=== PATIENT | male | born 1955 | race Two or more races ===

== ENCOUNTER 2021-05-11 14:13 | Inpatient (IN) | payer MEDICARE ==
[~2021-05-11] VITALS: Ht 162.6 cm; Wt 96.2 kg
--- NOTE | 2021-05-11 14:35 | NUR ---
BIBRA 100 FROM HOME C/O BILATERAL LEG PAIN 5/10 AND SWELLING X 2 MONTHS. SEEN IN OTHER HOSPITAL FOR SAME CC. THE PATIENT IS ALERT AND ORIENTED X3. RESPIRATION REGULAR AND UNLABORED. WILL CONTINUE TO MONITOR THE PATIENT.
[2021-05-11] MEDS ORDERED: PIPERACILLIN /TAZOBACTAM 3.375 G in IV D5W 50 ML IV ONE (15:00)
[2021-05-11] MEDS ORDERED: VANCOMYCIN 1 GM in IV D5W 250 ML IV ONE (15:00)
[2021-05-11] MEDS ORDERED: IV NS 0.9% 1,000 ML BAG IV ONE (15:00)
[2021-05-11 15:30] LABS: BASOPHILS # (AUTO) 0.1 K/uL (0.0-0.2); BASOPHILS % (AUTO) 0.6 % (0.0-2.0); HEMATOCRIT 48 % (39-51); LYMPHOCYTES # (AUTO) 0.4 K/uL (0.8-4.8); LYMPHOCYTES % (AUTO) 2.8 % (20.0-44.0); MEAN CORPUSCULAR HGB CONC 33 g/dl (31.0-36.0); MEAN CORPUSCULAR VOLUME 103 fL (80-96); MONOCYTES # (AUTO) 0.5 K/uL (0.1-1.30); MONOCYTES % (AUTO) 3.4 % (2.0-12.0); NEUTROPHILS # (AUTO) 12.8 K/uL (1.8-8.9); NEUTROPHILS % (AUTO) 93.2 % (43.0-81.0); PLATELET COUNT (AUTO) 153 K/uL (150-450); RED BLOOD CELL COUNT(AUTO) 4.73 MIL/uL (4.5-6.0); WHITE BLOOD COUNT (AUTO) 13.7 K/uL (4.3-11.0)
[2021-05-11 15:46] LABS: ALANINE AMINOTRANSFERASE 307 U/L (12-78); ALKALINE PHOSPHATASE 124 U/L (46-116); ASPARTATE AMINOTRANSFERASE 200 U/L (15-37); BILIRUBIN,TOTAL 2.5 mg/dL (0.2-1.0); CALCIUM, SERUM 8.8 mg/dL (8.5-10.1); CARBON DIOXIDE 23 mmol/L (21-32); CHLORIDE 87 mmol/L (98-107); CREATININE 3.4 mg/dL (0.6-1.3); GLUCOSE 137 mg/dL (74-106); POTASSIUM 4.1 mmol/L (3.5-5.1); SODIUM SERUM 126 mmol/L (136-145); TOTAL PROTEIN, SERUM 6.7 g/dL (6.4-8.2)
[2021-05-11 15:47] LABS: UREA NITROGEN, BLOOD 97 mg/dL (7-18)
[2021-05-11 15:48] LABS: ALBUMIN < 0.6 g/dL (3.4-5.0)
--- NOTE | 2021-05-11 16:06 | NUR ---
COVID ANTIGEN SWAB DONE AND SENT TO THE LAB
--- NOTE | 2021-05-11 16:20 | NUR ---
CONTACTED DR. REMY TO CALL ED
--- NOTE | 2021-05-11 17:28 | NUR ---
CALLED DR. CHUNG
--- NOTE | 2021-05-11 17:46 | NUR ---
COVID POSITIVE PER LAB
[2021-05-11] MEDS ORDERED: Z GUARD REMEDY 4 OZ OINT TP PRN (22:30)
[2021-05-11] MEDS ORDERED: ZOLPIDEM TARTRATE 5 MG TABLET PO PRN (22:30)
[2021-05-11] MEDS ORDERED: ONDANSETRON HCL/PF 4 MG/2 ML VIAL IVP PRN (22:30)
[2021-05-11] MEDS ORDERED: MAGNESIUM HYDROXIDE 30 ML UDC PO PRN (22:30)
[2021-05-12] VITALS: BP 101/54
[2021-05-12] MEDS ORDERED: PIPERACILLIN /TAZOBACTAM 2.255 G in IV D5W 50 ML IV SCH ×2
--- NOTE | 2021-05-12 00:51 | NUR ---
REPORT GIVEN TO ARABELLA COFFEY
--- NOTE | 2021-05-12 01:00 | NUR ---
PT WAS TRANSFERED TO 208 UNDER ACLS
--- NOTE | 2021-05-12 01:17 | NUR ---
Carlos johnson in [facility] - 05/12/21 at 0118 by GHADABBNEHEMIAS PT TRANSPORTED TO [facility] ON [facility] WITHOUT INCIDENT. ALL V/S STABLE AT TIME OF TRANSFER.
--- NOTE | 2021-05-12 01:30 | NUR ---
MS RN NOTES PT ARRIVED TO UNIT VIA GURNEY. PT A/OX 3 ABLE TO MAKE NEEDS KNOWN PT IN NO PAIN OR DISCOMFORT AT THIS TIME. NO SOB NOTED OR REPORTED AT THIS TIME. NOTED PT WITH IV ACCESS ON THE RAC 20G INTACT FLUSHING WELL S/L .PT SKIN WARM TO THE TOUCH NOTED WITH REDNESS ON THE BACK AND BLE EDEMA AND CELLULITIS PICTURES TAKEN PLACED IN CHART WOUND CONSULT ORDERED WOUND CLEANED WITH NS COVERED WITH ABD PAD AND KERLIX. NOTED WITH BILATERAL EYE REDNESS. NO EYE PAIN. ABD NON TENDER NON DISTENDED PT REFUSED LOWER EXTREMITY AND PERINEUM EXAMINATION X3 RISK AND BENEFITS EXPLAINED X3. PT REFUSING ANTICOAGULANT AT THIS TIME RISK AND BENEFITS EXPLAINED X3 PT ORIENTED TO ROOM A ND UNIT. CALL LIGHT WITHIN REACH. TABLE WITHIN REACH, WILL CONTINUE TO MONITOR.
[2021-05-12] MEDS ORDERED: PIPERACILLIN /TAZOBACTAM 2.25 G VIAL IV ONE ×2 (01:42→05:27)
--- NOTE | 2021-05-12 02:00 | NUR ---
RN NOTE PATIENT STATES THAT HEPARIN MAKES HIM BLEED AN ALLERGIC REACTION. DOESN'T REMEMBER WHERE THE BLEEDING WAS. EXPLAINED TO PATIENT THAT THIS CAN BE A SIDE EFFECT OF THE HEPARIN SINCE IT IS AN ANTICOAGULANT. PATIENT STATES THAT IT MAY HAVE BEEN A SIDE EFFECT INSTEAD. PATIENT VERBALIZES HE DOESNT WANT OTHER ANTICOAGULANTS EITHER. WILL ENDORSE TO MD IN AM.
[2021-05-12] MEDS: ZOSYN IVPB 2.25 G in IV D5W 50ml IV SCH ×2 (02:03→05:52)
[2021-05-12 02:13] VITALS: BP 103/64
[2021-05-12] MEDS ORDERED: IVAB5TAB PO (06:49)
[2021-05-12] MEDS ORDERED: METO2.5T7 PO (06:49)
[2021-05-12] MEDS ORDERED: BUME2TAB7 PO (06:49)
[2021-05-12] MEDS ORDERED: SACU1TAB PO (06:49)
[2021-05-12] MEDS ORDERED: LEVE500T20 PO (06:49)
[2021-05-12] MEDS ORDERED: APIX5TAB PO (06:49)
[2021-05-12] MEDS ORDERED: HYDR-4076 PO (06:49)
[2021-05-12 07:12] LABS: HEMATOCRIT 50 % (39-51); HEMOGLOBIN 16.4 g/dL (13.5-17.5); MEAN CORPUSCULAR HGB CONC 33 g/dl (31.0-36.0); MEAN CORPUSCULAR VOLUME 103 fL (80-96); PLATELET COUNT (AUTO) 120 K/uL (150-450); RED BLOOD CELL COUNT(AUTO) 4.83 MIL/uL (4.5-6.0); WHITE BLOOD COUNT (AUTO) 12.5 K/uL (4.3-11.0)
[2021-05-12] MEDS ORDERED: CARV3.122 PO (07:26)
[2021-05-12] MEDS ORDERED: ASPI-1498 PO (07:26)
--- NOTE | 2021-05-12 07:30 | NUR ---
PT RECEIVED RESTING COMFORTABLY IN BED. NO S/S OR C/O PAIN OR DISTRESS NOTED. SIDE RAILS UP X2, CALL LIGHT LEFT WITHIN REACH. WILL CONTINUE PLAN OF CARE.
--- NOTE | 2021-05-12 07:38 | NUR ---
RN CLOSING NOTE PATIENT NOT IN ANY APPARENT DISTRESS. STILL HAS PRODUCTIVE COUGH, ON RA. NO SIGNIFICANT CHANGES IN CONDITION. ENDORSED TO DAY SHIFT NURSE FOR TIFFANY.
[2021-05-12 07:56] VITALS: BP 92/63
[2021-05-12 08:00] VITALS: BP 89/64
[2021-05-12 08:05] LABS: CALCIUM, SERUM 8.6 mg/dL (8.5-10.1); CREATININE 3.3 mg/dL (0.6-1.3); MAGNESIUM 2.8 mg/dL (1.8-2.4); PHOSPHORUS 5.3 mg/dL (2.5-4.9); POTASSIUM 4.7 mmol/L (3.5-5.1)
[2021-05-12] MEDS: HEPARIN SODIUM, PORCINE 5000 UNITS/1 ML VIAL SQ SCH ×2 (09:00→21:00)
[2021-05-12 09:18] LABS: THYROID STIMULATING HORMONE 1.069 uIU/mL (0.358-3.74); URIC ACID 19.3 mg/dL (2.6-7.2)
--- NOTE | 2021-05-12 09:36 | NUR ---
WOUND CARE CONSULT: REVIEWED CHART, NURSING DOCUMENTATION AND PHOTOS WHICH INDICATE WOUNDS AND REDNESS TO LOWER LEGS WELL SCARRING TO BACK, PRESENT ON ADMISSION. DPM CONSULT CALLED TO DR MCCALL. DISCUSSED SKIN PROTECTION WITH NURSING STAFF. IN AGREEMENT WITH PLAN OF CARE. CURRENT BRIDGER SCORE IS 19.
[2021-05-12] MEDS: PIPERACILLIN /TAZOBACTAM 3.375 G in IV D5W 100 ML IV SCH (12:26)
--- NOTE | 2021-05-12 14:20 | NUR ---
PAGED REGARDING PT REFUSAL OF HEPARIN. NO NEW ORDERS.
[2021-05-12 16:00] VITALS: BP 100/68
--- NOTE | 2021-05-12 18:34 | NUR ---
CHANGE OF SHIFT REPORT PT RESTING COMFORTABLY IN BED. NO S/S OR C/O PAIN OR DISTRESS NOTED. SIDE RAILS UP X2, CALL LIGHT LEFT WITHIN REACH. PT KEPT CLEAN, DRY, AND COMFORTABLE. NO SIGNIFICANT CHANGES SINCE PREVIOUS SHIFT. WILL GIVE REPORT TO PETE BELL.
[2021-05-12] MEDS ORDERED: BUMETANIDE INJ 0.25 MG/ML VIAL IV SCH (19:30)
--- NOTE | 2021-05-12 19:44 | NUR ---
RN OPENING NOTES: RECEIVED PATIENT IN BED ALERT, ORIENTED X3, VERBALLY RESPONSIVE. NO SOB, NO CHEST CONGESTION, BREATHING EVEN AND UNLABORED. IV ACCESS ON RT AC #20G. NO S/S OF INFILTRATIONS. NO C/O PAIN OR DISCOMFORT. NO ACUTE DISTRESS. ALL SAFETY MEASURES IN PLACE. BOTH SIDE RAILS UP. BED IN LOW POSITION AND LOCKED. PLACE CALL LIGHT WITH IN REACH. WILL CONTINUE TO MONITOR FOR ANY CHANGES.
[2021-05-12 20:00] VITALS: BP 94/65
--- NOTE | 2021-05-12 21:20 | NUR ---
RN NOTES: PT STRONGLY REFUSED HEPARIN. HE MENTIONED, HE IS ALLERGIC TO HEPARIN. EXPLAINED THE RISK AND BENEFIT BUT STILL REFUSED. WILL CONTINUE TO MONITOR
--- NOTE | 2021-05-13 00:05 | NUR ---
RN NOTES: PT STATES, HE IS ALLERGIC TO HEPARIN.
[2021-05-13] MEDS: PIPERACILLIN /TAZOBACTAM 3.375 G in IV D5W 100 ML IV SCH ×3 (00:32→23:26)
[2021-05-13 04:00] VITALS: BP 91/54
[2021-05-13 05:41] LABS: BAND % (MANUAL) 52 % (0.0-5.0); LYMPHOCYTES % (MANUAL) 5 % (16-48); MONOCYTES % (MANUAL) 2 % (0-11.0); NEUTROPHILS % (MANUAL) 41 (42-76)
--- NOTE | 2021-05-13 06:50 | NUR ---
RN CLOSING NOTES: PATIENT IN BED ALERT, ORIENTED X3, VERBALLY RESPONSIVE. NO SOB, NO CHEST CONGESTION, BREATHING EVEN AND UNLABORED. IV ACCESS ON RT AC #20G. NO S/S OF INFILTRATIONS. IV ATB GIVEN ORDERED AND PT TOLERATED WELL. NO C/O PAIN OR DISCOMFORT. NO ACUTE DISTRESS. LAB CALL, PT'S BLOOD CULTURES CAME BACK POSITIVE. GRAM(-) RODS. ALL SAFETY MEASURES IN PLACE. BOTH SIDE RAILS UP. BED IN LOW POSITION AND LOCKED. PLACE CALL LIGHT WITH IN REACH. ENDORSE TO MORNING SHIFT RN
--- NOTE | 2021-05-13 07:21 | NUR ---
RN NOTES PATIENT IN BED RESTING, ALERT, ORIENTED X3, VERBALLY RESPONSIVE. BREATHING EVEN AND UNLABORED, NOT IN ACUTE DISTRESS. IV ACCESS ON RT AC #20G INTACT AND PATENT. PATIENT IS AMBULATORY W/ ASSIST. SAFETY MEASURES IN PLACE: BOTH SIDE RAILS UP, BED IN LOW POSITION AND LOCKED, CALL LIGHT WITHIN REACH. WILL CONTINUE TO MONITOR.
[2021-05-13 08:00] VITALS: BP 90/63
[2021-05-13] MEDS: HEPARIN SODIUM, PORCINE 5000 UNITS/1 ML VIAL SQ SCH ×2 (08:07→20:28)
[2021-05-13] MEDS: BUMETANIDE INJ 0.25 MG/ML VIAL IV SCH ×2 (08:13→16:05)
[2021-05-13 12:00] VITALS: BP 90/60
--- NOTE | 2021-05-13 14:00 | NUR ---
RN NOTES PATIENT SEEN BY DR. VILLALOBOS, FOR PODIATRY CONSULT.
[2021-05-13] MEDS ORDERED: VANCOMYCIN 1 GM in IV D5W 250 ML IV SCH (15:00)
[2021-05-13] MEDS: ACETAMINOPHEN 325 MG TABLET PO PRN (15:04)
[2021-05-13 17:00] LABS: BASOPHILS % (AUTO) 0.1 % (0.0-2.0); HEMATOCRIT 45 % (39-51); HEMOGLOBIN 14.8 g/dL (13.5-17.5); LYMPHOCYTES # (AUTO) 0.4 K/uL (0.8-4.8); MEAN CORPUSCULAR HGB CONC 33 g/dl (31.0-36.0); MEAN CORPUSCULAR VOLUME 103 fL (80-96); MONOCYTES # (AUTO) 0.6 K/uL (0.1-1.30); NEUTROPHILS # (AUTO) 18.9 K/uL (1.8-8.9); NEUTROPHILS % (AUTO) 94.9 % (43.0-81.0); PLATELET COUNT (AUTO) 107 K/uL (150-450); RED BLOOD CELL COUNT(AUTO) 4.38 MIL/uL (4.5-6.0); WHITE BLOOD COUNT (AUTO) 19.9 K/uL (4.3-11.0)
[2021-05-13 17:31] LABS: ALBUMIN 1.9 g/dL (3.4-5.0); BILIRUBIN,TOTAL 3.2 mg/dL (0.2-1.0); CALCIUM, SERUM 8.1 mg/dL (8.5-10.1); CREATININE 3.1 mg/dL (0.6-1.3); MAGNESIUM 2.3 mg/dL (1.8-2.4); PHOSPHORUS 4.9 mg/dL (2.5-4.9); POTASSIUM 4.3 mmol/L (3.5-5.1); TOTAL PROTEIN, SERUM 6.1 g/dL (6.4-8.2)
--- NOTE | 2021-05-13 19:11 | NUR ---
RN NOTES PATIENT IN BED RESTING, AWAKE AND VERBALLY RESPONSIVE; IV LINE INTACT AND PATENT. AMBULATES W/ ASSIST. NO RESPIRATORY DISTRESS NOTED. SAFETY MEASURES MAINTAINED. WILL ENDORSE TO GROUP HOME WORKER RN FOR TIFFANY.
--- NOTE | 2021-05-13 19:30 | NUR ---
MS/RN OPENING NOTE RECEIVED PATIENT RESTING IN BED. AWAKE, ALERT AND ORIENTED X 3. ABLE TO MAKE NEEDS KNOWN. DENIES PAIN AT THIS TIME. CONTINUES ON ROOM AIR WITH NO S/SX OF RESPIRATORY DISTRESS NOTED. IV ACCESS TO RIGHT AC # 20G INTACT, PATENT AND SALINE LOCKED. CONTINUES ON IV ABX FOR CELLULITIS. BLE DRESSINGS ARE CLEAN, DRY AND INTACT. PATIENT IS AMBULATORY WITH STEADY GAIT. CALL LIGHT WITHIN REACH. ASPIRATION, FALL AND SAFETY PRECAUTIONS MAINTAINED. WILL CONTINUE TO MONITOR.
[2021-05-13 20:00] VITALS: BP 87/60
--- NOTE | 2021-05-13 21:00 | NUR ---
MS/RN NOTE PATIENT REFUSED HEPARIN. EXPLAINED RISKS/BENEFITS WITH PATIENT CONTINUING TO REFUSE X 3. AWARE.
[2021-05-14 04:00] VITALS: BP 93/65
[2021-05-14] MEDS ORDERED: IBUPROFEN 400 MG TABLET PO PRN (05:05)
[2021-05-14] MEDS: TRAMADOL HCL 50 MG TABLET PO PRN (05:47)
--- NOTE | 2021-05-14 06:20 | NUR ---
MS/RN CLOSING NOTE PATIENT CURRENTLY RESTING IN BED. ALERT AND ORIENTED X 3. ABLE TO MAKE NEEDS KNOWN. DENIES PAIN AT THIS TIME. CONTINUES ON ROOM AIR WITH NO S/SX OF RESPIRATORY DISTRESS NOTED. IV ACCESS TO RIGHT AC # 20G INTACT, PATENT AND SALINE LOCKED. CONTINUES ON IV ABX FOR CELLULITIS. BLE DRESSINGS CHANGED TONIGHT WITH MODERATE DRAINAGE NOTED. PATIENT IS AMBULATORY WITH ASSIST. CALL LIGHT WITHIN REACH. ASPIRATION, FALL AND SAFETY PRECAUTIONS MAINTAINED. WILL ENDORSE PLAN OF CARE TO ONCOMING SHIFT.
[2021-05-14 07:03] LABS: BASOPHILS % (AUTO) 0.1 % (0.0-2.0); EOSINOPHILS % (AUTO) 0.1 % (0.0-6.0); HEMATOCRIT 49 % (39-51); LYMPHOCYTES # (AUTO) 0.4 K/uL (0.8-4.8); LYMPHOCYTES % (AUTO) 2.2 % (20.0-44.0); MEAN CORPUSCULAR HGB CONC 33 g/dl (31.0-36.0); MEAN CORPUSCULAR VOLUME 103 fL (80-96); MONOCYTES # (AUTO) 0.7 K/uL (0.1-1.30); MONOCYTES % (AUTO) 3.5 % (2.0-12.0); NEUTROPHILS # (AUTO) 18.4 K/uL (1.8-8.9); NEUTROPHILS % (AUTO) 94.1 % (43.0-81.0); PLATELET COUNT (AUTO) 115 K/uL (150-450); RED BLOOD CELL COUNT(AUTO) 4.74 MIL/uL (4.5-6.0); WHITE BLOOD COUNT (AUTO) 19.6 K/uL (4.3-11.0)
--- NOTE | 2021-05-14 07:26 | NUR ---
RN NOTE PATIENT IS IN BED WITH HOB AT SEMI FOWLERS POSITION. PATIENT IS AOX3. PATIENT IS ON ROOM AIR WITH NO SIGNS OF LABORED BREATHING. RAC 20G IS PATENT AND INTACT. BED IS LOCKED IN THE LOWEST POSITION, 3 GUARD RAILS RAISED, CALL REEVES WITHIN REACH, AND ALL HOSPITAL SAFETY PRECAUTIONS ARE BEING FOLLOWED. WILL CONTINUE TO MONITOR THROUGHOUT SHIFT.
[2021-05-14 07:27] LABS: ALBUMIN 2.3 g/dL (3.4-5.0); BILIRUBIN,TOTAL 3.8 mg/dL (0.2-1.0); CALCIUM, SERUM 9.2 mg/dL (8.5-10.1); CREATININE 2.9 mg/dL (0.6-1.3); MAGNESIUM 2.7 mg/dL (1.8-2.4); PHOSPHORUS 5.1 mg/dL (2.5-4.9); POTASSIUM 4.4 mmol/L (3.5-5.1); TOTAL PROTEIN, SERUM 7.2 g/dL (6.4-8.2)
[2021-05-14] MEDS: BUMETANIDE INJ 0.25 MG/ML VIAL IV SCH (08:11)
[2021-05-14] MEDS: HEPARIN SODIUM, PORCINE 5000 UNITS/1 ML VIAL SQ SCH ×2 (08:18→21:00)
[2021-05-14] MEDS: PIPERACILLIN /TAZOBACTAM 3.375 G in IV D5W 100 ML IV SCH (11:08)
--- NOTE | 2021-05-14 14:54 | NUR ---
RN NOTE OKAY PER ELICIA IN PHARMACY TO ADMINISTER VANCOMYCIN WITH PEAK LEVEL OF 37 YESTERDAY 05/13
[2021-05-14] MEDS: VANCOMYCIN 1 GM in IV D5W 250 ML IV SCH (14:55)
[2021-05-14] MEDS: CADEXOMER IODINE 40 GM TUBE TP SCH (14:56)
[2021-05-14 16:00] VITALS: BP 93/65
--- NOTE | 2021-05-14 18:59 | NUR ---
RN NOTE PATIENT IS IN BED WITH HOB AT SEMI FOWLERS POSITION. PATIENT IS AOX3. PATIENT IS ON ROOM AIR WITH NO SIGNS OF LABORED BREATHING. RAC 20G IS PATENT AND INTACT. BED IS LOCKED IN THE LOWEST POSITION, 3 GUARD RAILS RAISED, CALL REEVES WITHIN REACH, AND ALL HOSPITAL SAFETY PRECAUTIONS ARE BEING FOLLOWED. WILL ENDORSE TO JUNIOR PROJECT MANAGER RN.
[2021-05-14 20:00] VITALS: BP 97/74
--- NOTE | 2021-05-14 20:30 | NUR ---
CONTINUITY OF CARE Patient in bed awake. BLE cellulitis, with dry gauze. Patient denies pain at this time. Tolerating room air. Covid rapid test positive. Contact/Droplet precaution maintained.
--- NOTE | 2021-05-14 22:28 | NUR ---
ANTICOAGULANT Patient is A/O x3. H/H 16.0/49 PLT 115 No active bleeding. Patient refused Heparin injection, per patient he is allergic to Heparin, cause him to bleed. Education given, risk and benefits of the medication. Will notify
[2021-05-15] VITALS: BP 99/70
[2021-05-15] MEDS: PIPERACILLIN /TAZOBACTAM 3.375 G in IV D5W 100 ML IV SCH ×2 (00:16→11:51)
[2021-05-15] MEDS: TRAMADOL HCL 50 MG TABLET PO PRN ×2 (00:23→11:51)
--- NOTE | 2021-05-15 00:23 | NUR ---
MD CALLED BACK Spoke with Dr. Gomez, re: Patient refusal to Heparin injection, as per patient he is allergic to Heparin that cause him to bleed. Patient refused Heparin injection in the last 3 days, per RN notes MD was aware. Dr. Gomez recommend Lovenox 30mg SQ daily, not to place order at this time, per MD to f/u in the morning. Will endorse to oncoming RN.
[2021-05-15] MEDS: ACETAMINOPHEN 325 MG TABLET PO PRN (02:28)
--- NOTE | 2021-05-15 06:37 | NUR ---
END OF SHIFT REPORT Patient is A/O x3. Oxygen sat 96% on RA. BP in the low 90's Patient denies dizziness. BLE cellulitis, dressing changed. BLE pain, given PRN Tylenol and Tramadol with help. On IV abx. Afebrile. Slept good with PRN Ambien. Lovenox 30mg daily as per DR. Gomez recommendation as patient reported he's allergic to Heparin. Will endorse to oncoming RN. Pushpa Rapid test positive. Maintained isolation precaution.
[2021-05-15 06:44] LABS: CALCIUM, SERUM 8.7 mg/dL (8.5-10.1); CREATININE 2.9 mg/dL (0.6-1.3); POTASSIUM 3.8 mmol/L (3.5-5.1)
[2021-05-15 08:00] VITALS: BP 105/67
--- NOTE | 2021-05-15 08:00 | NUR ---
ms rn received on bed, awake, alert,oriented x3,noted to have a bilateral lower lrg cellulitis w/ dressing dry and intact, denies pain at this time,will monitor patient.
[2021-05-15] MEDS: HEPARIN SODIUM, PORCINE 5000 UNITS/1 ML VIAL SQ SCH ×2 (09:00→20:17)
--- NOTE | 2021-05-15 09:30 | NUR ---
ms tian breakfast served,due meds given,tolerated well.
[2021-05-15] MEDS: CADEXOMER IODINE 40 GM TUBE TP SCH (11:18)
[2021-05-15] MEDS: VANCOMYCIN 1 GM in IV D5W 250 ML IV SCH (15:00)
--- NOTE | 2021-05-15 15:00 | NUR ---
ms rn held vanco level is high, rx will adjust it.
[2021-05-15 16:00] VITALS: BP 97/56
--- NOTE | 2021-05-15 17:44 | NUR ---
ms rn on bed, no distress noted.
[2021-05-15] MEDS ORDERED: CEFEPIME 1 GM in IV D5W 50 ML IV SCH (20:00)
[2021-05-15 20:23] VITALS: BP 97/71
[2021-05-16] VITALS (41 sets, daily range): BP systolic 39–189; BP diastolic 22–121
--- NOTE | 2021-05-16 00:20 | NUR ---
MS RN NOTES PT FOUND NON RESPONSIVE. CODE BLUE INITIATED.
--- NOTE | 2021-05-16 01:05 | NUR ---
RN NOTES PT RECEIVED PT S/P CODE BLUE FROM MS2; TRANSFERRED TO ICU RM 257. BEDSIDE REPORT GIVEN ARABELLA PEREA . ALL PERTINENT MEDICAL INFO REGARDING PT OBTAINED. PT ON MECHANICAL VENT; SETTINGS PRESCRIBED. PT UNSTABLE AT THIS TIME. CALL LIGHT WITHIN REACH, SAFETY MEASURES AND ISOLATION PRECAUTION IN PLACE, WILL CONTINUE MONITOR AND ASSESS THROUGHOUT THE SHIFT. NOTIFIED COLBY GUARDADO (TISHA PERES NP) REGARDING PT GOT TRANSFERRED TO ICU AND WILL CARRY OUT MD ORDERS ACCORDINGLY. SALES VICE PRESIDENT MADE AWARE.
[2021-05-16] MEDS ORDERED: NOREPINEPHRINE 8MG/250ML RTU 250 ML IV ONE ×2 (01:22→02:50)
--- NOTE | 2021-05-16 01:28 | NUR ---
RN/ICU-PT. CRITICALLY ILL ON THE VENT PER ETT, UNRESPONSIVE NOTED PT PULSELESS, EKG ASYSTOLE X 2 LEADS, ACTIVATED CODE BLUE, ACLS INITIATED PER PROTOCOL. REFER TO CARDIOPULMONARY ARREST RECORD FOR DETAILS.
--- NOTE | 2021-05-16 01:30 | NUR ---
MS RN NOTES CALLED ANNIA SISTER. SPOKE WITH HER RE PT'S CONDITION. NOTIFIED PT IN ROOM 257 ON [facility] VENT AT THIS TIME. REPORT GIVEN TO GAURAV BELL FOR CONTINUITY OF CARE
[2021-05-16] MEDS: NOREPINEPHRINE 8 MG in IV NS 0.9% 242 ML IV PRN ×5 (01:32→06:59)
--- NOTE | 2021-05-16 01:35 | NUR ---
RN/ICU- ACLS EFFORTS SUCCESSFUL, PT. SURVIVED,ROSC AT 0134. BP-56/32, HR-115 ST,ON LEVOPHED DRIP AT 1 MCG/KG/MIN,INITIATED DURING CODE BLUE. WILL CONTINUE TO TITRATE TO KEEP SBP>90.
[2021-05-16] MEDS ORDERED: PHENYLEPHRINE 10 MG/ML VIAL ONE (02:02)
[2021-05-16] MEDS: PHENYLEPHRINE 50 MG in IV NS 0.9% 245 ML IV PRN ×2 (02:10→08:59)
[2021-05-16] MEDS ORDERED: VANCOMYCIN 1 GM in IV D5W 250 ML IV SCH (03:00)
[2021-05-16 03:14] LABS: ABG BASE EXCESS -21.5 mmol/L; ABG OXYGEN SATURATION 24.7 % (92.0-98.5); ABG PCO2 81.7 mmHg (35.0-45.0); ABG PH 6.851 (7.350-7.450); ABG PO2 28.7 mmHg (75.0-100.0); AaDO2 602.6 mmHg; COHb 0.1 % (0.5-1.5); MetHb 0.8 % (0.0-1.5); O2Hb 24.5 % (94.0-97.0); PEEP,BG 5 cm H2O; SITE, ABG Right Radial; VT, ABG 500 mL
--- NOTE | 2021-05-16 03:35 | NUR ---
ABG done results relayed to CO FOUNDER AND DIRECTOR Vinny Dewitt, CO FOUNDER AND DIRECTOR requested vent settings change to AC 28 550 100% +5 , SPO2 was not charted due to SPO2 too low to accurately display, SAO2 on ABG is 24.7%, will continue to monitor Addendum: 05/16/21 at 0337 by JASSON TINAJERO RT Amended: Links added.
--- NOTE | 2021-05-16 03:38 | NUR ---
Code blue called at 0020 , pt intubated 0030 with a 7.5 ETT @ 24 cm , initial vent settings are AC 20 550 100% +5 , ABG post intubation in one hour, will continue to monitor Addendum: 05/16/21 at 0341 by JASSON TINAJERO RT Amended: Links added.
[2021-05-16] MEDS ORDERED: NOREPINEPHRINE 4 MG/4 ML AMPUL IV ONE ×2 (04:26→06:33)
--- NOTE | 2021-05-16 05:20 | NUR ---
RN NOTES CALLED PT'S SISTER ANNIA RAI [phone] OBTAINED CONSENT/AUTHORIZATION FOR PICC LINE INSERTION; WITNESSED BY ENROLLMENT MANAGEMENT DIRECTOR (RAABELLA COLBY). ALSO PROVIDED GENERAL UPDATES ABOUT PT; PT UNSTABLE AT THIS TIME BUT BEING STRICTLY MONITORED, ADVISED FAMILY THAT WILL PROVIDE CALL FOR ANY SIGNIFICANT CHANGES TO PT'S CONDITION. FAMILY ACKNOWLEDGED AND VERY THANKFUL.
--- NOTE | 2021-05-16 07:11 | NUR ---
RN CLOSING NOTE: PATIENT REMAINS IN ROOM CRITICALLY UNSTABLE, ON MECH VENT; SETTINGS PRESCRIBED; SATURATING<90% SINCE PT WAS RECEIVED POST CODE. SAFETY MEASURES IMPLEMENTED, BED IN LOWEST POSITION, LOCKED, SIDE RAILS UP, CALL LIGHT WITHIN REACH. ALL NEEDS AND ORDERS ADDRESSED DURING THE SHIFT. IV ACCESS MAINTAINED INTACT, SECURED AND FLUSHING WELL. ALL DUE MEDS GIVEN ORDERED & SCHEDULED. STILL WITH ONGOING DRIP FOLLOWS: LEVO MAX @1MCG/KG/MIN AND GREGORIO @ 1MCG/HR BOTH RUNNING, MONITORED AND ADJUSTED PER PROTOCOL. PATIENT KEPT CLEAN AND COMFORTABLE WITHIN THE SHIFT. PATIENT ENDORSED TO INCOMING SHIFT RN FOR CONTINUITY OF CARE.
--- NOTE | 2021-05-16 07:35 | NUR ---
ICU/RN PT IS INTUBATED ON THE VENT AC MODE,FIO2-100%,SAT 02-90%,S/P CODE BLUE TWO TIMES LAST NIGHT.NOT SEDATED.UNRESPONSIVE,NO GAG OR COUGH REFLEXES,NO CORNEAL REFLEXES. ON LEVOPHED DRIP MAXIMUM DOSE AND ON NEOSYNEPHRINE DRIP.AFEBRILE.PT HAS LIFE VEST ON.
--- NOTE | 2021-05-16 08:20 | NUR ---
ICU/RN DUE MEDS ARE GIVEN ORDERED.NEOSYNEPHRINE DRIP INCREASED TO MAX DOSE.FAMILY NOTIFIED ABOUT PATIENT CONDITION.SISTER ANNIA.PATIENT IS FULL CODE PER FAMILY.CONTINUE MONITORING
[2021-05-16] MEDS: HEPARIN SODIUM, PORCINE 5000 UNITS/1 ML VIAL SQ SCH (08:38)
[2021-05-16] MEDS: CADEXOMER IODINE 40 GM TUBE TP SCH (08:38)
[2021-05-16] MEDS ORDERED: NOREPINEPHRINE 32 MG in IV NS 0.9% 218 ML IV PRN (09:00)
[2021-05-16] MEDS ORDERED: EPINEPHRINE (1:10,000) SYRINGE 1 MG/10 ML DISP.SYRIN IVP ONE ×2 (09:29→10:24)
--- NOTE | 2021-05-16 09:30 | NUR ---
ICU/RN PER DR ERWIN .LIFE VEST REMOVED.
--- NOTE | 2021-05-16 10:10 | NUR ---
ICU/RN 09:42 PT IS PEA.CODE BLUE #3 INITIATED. SEE CODE BLUE RECORD.10:06 PT PRONOUNCE BY ER DOCTOR DR WARNER. PRIMARY MD NOTIFIED.FAMILY NOTIFIED.PT HAS NO MORTUARY ARRANGEMENT. SISTER ANINA RAI [phone] WILL PROVIDE LETTER. ICE SKATING COACH MU NOTIFIED. POST MORTEM CARE DONE.
[2021-05-16] MEDS ORDERED: DEXTROSE 50%-WATER 50 ML DISP.SYRIN IV ONE (10:24)
[2021-05-16] MEDS ORDERED: SODIUM BICARBONATE SYR 50 MEQ/50 ML DISP.SYRIN IV ONE (10:24)
--- NOTE | 2021-05-16 10:30 | NUR ---
ICU/RN LIFE VEST REMOVED FROM THE BODY.CLEANED AND PLACED ON THE NURSING STATION.ROCK DUSTER MU NOTIFIED.[employer] NOTIFIED.
--- NOTE | 2021-05-16 11:00 | NUR ---
ICU/RN [facility] NOTIFIED AT 10:33 .CASE NUMBER IS [id number] ,SERJIO Albetr. BODY TRANSFERRED TO [facility].
== END 2021-05-16 12:54 | DRG 602 ==
LOC: ER 14:17 → TRANSITION 18:40 → MEDSG2 05-12 00:18 → ICU 05-16 01:18
PROC: 5A1935Z Respiratory Ventilation, Less than 24 Consecutive Hours (ICD-10-PCS; principal; 2021-05-16)
PROC: 0BH18EZ Insertion of Endotracheal Airway into Trachea, Via Natural or Artificial Opening Endoscopic (ICD-10-PCS; 2021-05-16)
PROC: 5A12012 Performance of Cardiac Output, Single, Manual (ICD-10-PCS; 2021-05-16)
PROC: 5A12012 Performance of Cardiac Output, Single, Manual (ICD-10-PCS; 2021-05-16)
DX: L03.116 Cellulitis of left lower limb (principal); U07.1 COVID-19; I50.23 Acute on chronic systolic (congestive) heart failure; I13.0 Hypertensive heart and chronic kidney disease with heart failure and stage 1 through stage 4 chronic kidney disease, or unspecified chronic kidney disease; N17.9 Acute kidney failure, unspecified; E87.2 Acidosis; E87.1 Hypo-osmolality and hyponatremia; I42.9 Cardiomyopathy, unspecified; I87.313 Chronic venous hypertension (idiopathic) with ulcer of bilateral lower extremity; L97.829 Non-pressure chronic ulcer of other part of left lower leg with unspecified severity; L97.819 Non-pressure chronic ulcer of other part of right lower leg with unspecified severity; J98.11 Atelectasis; L03.115 Cellulitis of right lower limb; I12.9 Hypertensive chronic kidney disease with stage 1 through stage 4 chronic kidney disease, or unspecified chronic kidney disease; I25.10 Atherosclerotic heart disease of native coronary artery without angina pectoris; N18.30 Chronic kidney disease, stage 3 unspecified; Z79.01 Long term (current) use of anticoagulants; Z95.5 Presence of coronary angioplasty implant and graft; E80.6 Other disorders of bilirubin metabolism; K72.90 Hepatic failure, unspecified without coma; M79.662 Pain in left lower leg; M79.661 Pain in right lower leg; K76.1 Chronic passive congestion of liver; B96.5 Pseudomonas (aeruginosa) (mallei) (pseudomallei) as the cause of diseases classified elsewhere
CPT/HCPCS: 36415; 36600; 71045-TC; 76700-TC; 80048-TC; 80053-TC; 80061-TC; 80076-TC; 80202-TC; 82140-TC; 82803-TC; 82962-TC; 83605-TC; 83735-TC; 84100-TC; 84443-TC; 84484-TC; 84550-TC; 85025-TC; 85730-TC; 87040-TC; 87081-TC; 87186-TC; 92950-TC; 93307-TC; 94002-TC; 97110-TC; 97112-TC; 97530-TC; A6253; A6403; C9803; G0378; J0171; J0692; J1644; J2370; J2405; J2543; J3370; J3490; J7030; J7050; J7060